=== PATIENT | male | born 1950 | race Hispanic/Latino ===

== ENCOUNTER 2017-09-01 08:42 | Emergency (ER) | payer MEDICARE ==
[2017-09-01 08:43] VITALS: BMI 31.9
[2017-09-01 09:05] VITALS: TEMP 98.7; O2SAT 98
[2017-09-01] MEDS ORDERED: Morphine 4 mg/ml ISec IVP STA (09:22)
[2017-09-01] MEDS ORDERED: Morphine 2 mg/ml ISec IVP STA (09:23)
[2017-09-01] MEDS ORDERED: Morphine 2 mg/ml ISec ONE (09:25)
--- NOTE | 2017-09-01 09:56 | ED PDOC ---
Arrival/HPI - General Chief Complaint: Trauma Time Seen by Provider: 09/01/17 09:18 Historian: Patient - History of Present Illness Narrative History of Present Illness (Text): 09/01/17 09:53 67yr old male presents today with left wrist pain s/p fall last night. pt states he missed the last step and fell landing on outstretched arm. pt c/o pain to the left wrist. denies hitting his head. denies neck or back pain. no fever/chills. denies numbness or tingling in the extremity. pt c/o severe aching pain and deformity to the wrist. no abdominal pain. no dizziness or weakness. no other complaints. Past Medical History - Provider Review Nursing Documentation Reviewed: Yes - Travel History Have you recently traveled outside [place] w/in the past 3 mons?: No - Past History Past History: Non-Contributing - Infectious Disease Hx of Infectious Diseases: None - Tetanus Immunization Tetanus Immunization: Unknown - Past Medical History Past Medical History: Non-Contributing - Cardiac Hx Congestive Heart Failure: Yes Hx Hypertension: Yes - Pulmonary Hx Respiratory Disorders: No - Neurological Hx Neurological Disorder: No - HEENT Hx HEENT Disorder: No - Renal Hx Renal Disorder: No - Endocrine/Metabolic Hx Endocrine Disorders: No - Hematological/Oncological Hx Blood Disorders: No Hx AIDS: No - Integumentary Hx Dermatological Disorder: No - Musculoskeletal/Rheumatological Hx Musculoskeletal Disorders: No - Gastrointestinal Hx Gastrointestinal Disorders: No - Genitourinary/Gynecological Hx Genitourinary Disorders: No - Psychiatric Hx Depression: No Hx Emotional Abuse: No Hx Physical Abuse: No Hx Substance Use: No - Surgical History Hx Orthopedic Surgery: Yes (BACK, C SPINE, L KNEE) - Suicidal Assessment Feels Threatened In Home Enviroment: No Family/Social History - Physician Review Nursing Documentation Reviewed: Yes Family/Social History: Unknown Family HX Smoking Status: Never Smoked Hx Alcohol Use: Yes (beer and whiskey) Hx Substance Use: No Hx Substance Use Treatment: No Allergies/Home Meds Allergies/Adverse Reactions: Allergies No Known Allergies Allergy (Verified 09/01/17 09:00) Home Medications: Home Meds Medication Instructions Recorded Confirmed Unobtainable 04/30/16 09/01/17 Review of Systems - Review of Systems Constitutional: absent: Fatigue, Fevers Respiratory: absent: SOB, Cough Cardiovascular: absent: Chest Pain, Palpitations Gastrointestinal: absent: Abdominal Pain, Nausea, Vomiting Genitourinary Male: absent: Dysuria Musculoskeletal: Arthralgias. absent: Back Pain, Neck Pain Skin: absent: Rash, Pruritis Neurological: absent: Headache, Dizziness Psychiatric: absent: Anxiety, Depression, Suicidal Ideation Physical Exam Vital Signs Reviewed: Yes Vital Signs Temp Pulse Resp BP Pulse Ox 09/01/17 09:03 98.7 F 89 17 169/99 H 98 Temperature: Afebrile Blood Pressure: Hypertensive Pulse: Regular Respiratory Rate: Normal Appearance: Positive for: Well-Appearing, Non-Toxic, Comfortable Pain Distress: None Mental Status: Positive for: Alert and Oriented X 3 - Systems Exam Head: Present: Atraumatic Mouth: Present: Moist Mucous Membranes Neck: Present: Normal Range of Motion Respiratory/Chest: Present: Clear to Auscultation, Good Air Exchange. No: Respiratory Distress, Accessory Muscle Use Cardiovascular: Present: Regular Rate and Rhythm, Normal S1, S2. No: Murmurs Abdomen: Present: Normal Bowel Sounds. No: Tenderness, Distention, Peritoneal Signs Upper Extremity: Present: NORMAL PULSES, Tenderness (left wrist; + deformity; + tenderness noted over dorsal wrist, sensation and distal pulses intact. cap refill <2. ), Swelling, Neurovascularly Intact, Capillary Refill < 2s, Deformity. No: Normal ROM Neurological: Present: GCS=15 Skin: Present: Warm, Dry, Normal Color. No: Rashes Psychiatric: Present: Alert, Oriented x 3 Medical Decision Making ED Course and Treatment: 09/01/17 09:57 Patient nontoxic well-appearing in no distress with stable vital signs with 10/ 10 left wrist pain s/p mechanical fall last night. morphine given IV. X-rays of the left wrist; + fracture, bony lesion. pt requesting dr. anna; i spoke with dr. anna discussed case in depth; requesting ct of wrist; he saw patient at bedside and splinted patient. He would like patient to be discharged on percocet; pt is to f/u with dr. anna in the office. I discussed all results with patient advised to followup with the orthopedist for the next 2 days. Return if symptoms worsen persist or new symptoms develop Stressed importance of immediate follow-up regarding bony lesion. Advised patient of concern for cyst versus cancerous lesion. I advised immediate follow- up for further diagnosis. Patient verbalizes understanding of discharge instructions and need for immediate followup. all aspects of this case were discussed the attending of record. Impression: wrist fracture, bony lesion take percocet every 6 hours as needed for pain. Rest, ice, compression, elevation Followup with the orthopedist within the next 2 days Followup with primary care physician within the next 2 days Return if any other concerning symptoms develop - RAD Interpretation Radiology Orders: 09/01/17 09:07 CHEST ONE VIEW [RAD] Stat WRIST, LEFT 3 VIEWS [RAD] Stat 09/01/17 10:09 EXT UPPER W/O CONTRAST LEFT [CT] Stat - Medication Orders Current Medication Orders: Discontinued Medications Morphine Sulfate (Morphine) 2 mg IVP STAT STA Stop: 09/01/17 09:24 Last Admin: 09/01/17 09:26 Dose: 2 mg Comments: med not scanning MAR Pain Assessment Document 09/01/17 09:26 (Rec: 09/01/17 09:26 [id number]) Pain Reassessment Is this a pain reassessment? No Sleep Is patient sleeping during reassessment? No Presence of Pain Presence of Pain Yes Pain Scale Used Pain Scale Used Numeric Location Left, Right or Bilateral Left Pain Location Body Site Wrist IVP Administration Document 09/01/17 09:26 SE (Rec: 09/01/17 09:26 [id number] Charges for Administration # of IVP Administrations 1 Disposition/Present on Arrival - Present on Arrival Any Indicators Present on Arrival: No History of DVT/PE: No History of Uncontrolled Diabetes: No Urinary Catheter: No History of Decub. Ulcer: No History Surgical Site Infection Following: None - Disposition Have Diagnosis and Disposition been Completed?: Yes Diagnosis: Wrist fracture, Bony abnormality Disposition: HOME/ ROUTINE Disposition Time: 11:38 Patient Plan: Discharge Condition: GOOD Discharge Instructions (ExitCare): Wrist Fracture in Adults (ED) Additional Instructions: take percocet every 6 hours as needed for pain. Rest, ice, compression, elevation Followup with the orthopedist within the next 2 days regarding abnormal bony lesion. Followup with primary care physician within the next 2 days Return if any other concerning symptoms develop Referrals: Shyam Sheridan MD [Primary Care Provider] - Follow up with primary Lloyd Anna DO [Staff Provider] - Follow up with primary Forms: Ubimo (Maltese)
--- NOTE | 2017-09-01 11:50 | CT ---
PROCEDURE: CT of the left wrist without contrast HISTORY: left wrist fx with bony lesion COMPARISON: X-ray same day TECHNIQUE: Radiation dose: Total exam DLP = 136 mGy-cm. This CT exam was performed using one or more of the following dose reduction techniques: Automated exposure control, adjustment of the mA and/or kV according to patient size, and/or use of iterative reconstruction technique. 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 Fractures are seen through the wall of the cyst and through the articular surface of the distal radius. There is also bone cyst in the scaphoid without associated fracture. That cyst measures 6 x 12 mm as seen on axial image 73 series 2. Chronic degenerative changes are seen in the carpal bones. 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
[2017-09-01 11:52] VITALS: BP 150/79; PULSE 82; RESP 16
--- NOTE | 2017-09-01 11:52 | RAD ---
PROCEDURE: CHEST RADIOGRAPH, 1 VIEW HISTORY: fall last night COMPARISON: 12/28/2013 FINDINGS: LUNGS: Clear. PLEURA: No pneumothorax or pleural fluid seen. CARDIOVASCULAR: Mild cardiomegaly OSSEOUS STRUCTURES: No significant abnormalities. VISUALIZED UPPER ABDOMEN: Normal. OTHER FINDINGS: None. IMPRESSION: No active disease.
--- NOTE | 2017-09-01 11:53 | RAD ---
PROCEDURE: Left Wrist Radiographs. HISTORY: s/p fall last night COMPARISON: None. 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 A smaller cyst is seen in the scaphoid with no associated fractures JOINTS: Normal. No dislocation. SOFT TISSUES: Normal. OTHER FINDINGS: None. 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 A smaller cyst is seen in the scaphoid with no associated fractures
--- NOTE | 2017-09-02 08:55 | CON ---
DATE: 09/01/2017 ORTHOPEDIC CONSULTATION HISTORY OF PRESENT ILLNESS: The patient is a 67-year-old male. No previous history of injuries or trauma, sustained a fracture to his left wrist yesterday on 08/31/2017, had no previous pain prior to the fall on the steps. An x-ray shows a large bone cyst at the distal radius with fracture to the lateral radial part of the metaphysis. It was approximately about 3 cm x 3.5 cm wide, not encompassing much of the radial articular surface just at the radial metaphyseal surface, minimally displaced with tremendous pain. So, I put him in a radial gutter splint and I am going to get copies of the plain x-rays and the CAT scan and send to a tumor specialist, Dr. Rodriguez in [place]. In the meantime, I will call him tomorrow with more information and just to elevate the arm and if it gets worse pain or numbness, I could see him again in the Emergency Room. Hopefully, when he elevates feel better. FINAL DIAGNOSIS: Pathologic fracture at the distal radius right-hand dominant man and to send him to a bone tumor specialist. Lloyd Frances DO
== END 2017-09-01 11:51 | disposition home or self-care (01) ==
LOC: ED 08:42
DX: S62.102A Fracture of unspecified carpal bone, left wrist, initial encounter for closed fracture (principal); W10.8XXA Fall (on) (from) other stairs and steps, initial encounter; Y92.008 Other place in unspecified non-institutional (private) residence as the place of occurrence of the external cause; M89.9 Disorder of bone, unspecified
CPT/HCPCS: 71045; 73110; 73200; 96374; 99285; J2270

== ENCOUNTER 2017-11-25 06:42 | Day surgery (SDC) | payer MEDICARE ==
[2017-11-14 12:45] VITALS: BMI 29.0
[2017-11-25] MEDS ORDERED: Lidocaine 2% Inj (20ml) ONE (07:04)
[2017-11-25] MEDS ORDERED: Iodixanol 320 MG/ML 200 ML BOTTLE IV ONE (07:05)
[2017-11-25] MEDS ORDERED: Midazolam 2 MG/2 ML VIAL ONE ×2 (07:05→08:38)
[2017-11-25 07:15] LABS: BASO # 0.02 K/mm3 (0.0-2.0); BASO % 0.3 % (0.0-3.0); EOS # 0.1 (0.0-0.7); EOS % 2.2 % (1.5-5.0); GRAN # 3.76 (1.4-6.5); GRAN % 59.4 % (50.0-68.0); HEMOGLOBIN 14.7 g/dL (14.0-18.0); LYMPH # 1.7 (1.2-3.4); LYMPH % 26.4 % (22.0-35.0); MEAN CORPUSCULAR HEMOGLOBIN 27.7 pg (25.0-35.0); MEAN CORPUSCULAR HGB CONC 33.4 g/dl (31.0-37.0); MEAN PLATELET VOLUME 12.8 fl (7.0-11.0); MONO # 0.7 (0.1-0.6); MONO % 11.7 % (1.0-6.0); RBC 5.3 10^6/uL (3.5-6.1); RED CELL DISTRIBUTION WIDTH 15.1 % (11.5-14.5); WHITE BLOOD COUNT 6.3 10^3/ul (4.5-11.0)
[2017-11-25 07:24] LABS: BLOOD UREA NITROGEN 29 mg/dL (7-21); CALCIUM 9.9 mg/dL (8.4-10.5); GFR AFRICAN-AMERICAN > 60; GFR NON-AFRICAN AMERICAN > 60; HDL CHOLESTEROL 41 mg/dL (29-60)
[2017-11-25 07:32] LABS: INR 1.19 (0.93-1.08); PROTHROMBIN TIME 13.7 SECONDS (9.4-12.5)
[2017-11-25 07:34] LABS: LDL CHOLESTEROL 90 mg/dL (0-129)
[2017-11-25] MEDS ORDERED: Sodium Chloride 0.9% 1,000 ML IV SCH (10:00)
--- NOTE | 2017-11-25 10:15 | CPOSTOP ---
DATE: 11/25/2017 CARDIOVASCULAR LAB POSTPROCEDURE NOTE (CARDIAC CATH). PHYSICIAN: Mary Blair MD HOOKER UP: KEVIN Cano, decontamination technician. TYPE OF ANESTHESIA: Moderate conscious sedation. Total dose given 2 mg of Versed, 100 of fentanyl periodically, it started at 1 mg of Versed and 50 of fentanyl. PRE-PROCEDURE DIAGNOSES: pre-op clearance and abnormal stress test and cardiomyopathy. PROCEDURE PERFORMED: Left heart catheterization from right femoral access. FINDINGS: Nonobstructive coronary artery disease, nonischemic cardiomyopathy, ejection fraction 30%. FINAL DIAGNOSIS: Nonischemic cardiomyopathy. POST PROCEDURE CONDITION: Stable. VASCULAR ACCESS SITE: Right femoral groin. CLOSING DEVICE APPLIED: Angio-Seal. RADIATION DOSE: 5685.9 milligray unit. FLUORO TIME: 2.1 minutes. Mary Blair MD MTDD
[2017-11-25 10:33] VITALS: TEMP 98.6
[2017-11-25 10:56] VITALS: RESP 18; O2SAT 98
[2017-11-25] MEDS ORDERED: Digoxin 125 mcg (0.125 mg) Tab PO SCH ×2 (14:00)
[2017-11-25 14:25] VITALS: BP 159/80; PULSE 66
--- NOTE | 2017-11-25 18:35 | CARD ---
APPROVED REPORT Procedure(s) performed: Left Heart Catheterization HISTORY The patient is a 67 year-old male with a history of : most recent EF: 30%. (EF Method: RADIONUCLIDE), diabetes mellitus with diet treatment , previous diagnostic cath, hypertension , dyslipidemia , CMP and abnormal stress test pre-op for wrist surgery.. INDICATION The indication(s) include : positive stress test, dyspnea. CASE TECHNIQUE The patient was brought electively to the Cardiac Catheterization Laboratory in a fasting state and was prepped and draped in a sterile manner. The right femoral groin was infiltrated with 2% Lidocaine subcutaneous anesthesia. A 6 Fr x 10 cm Cornish sheath was inserted into the right femoral artery without difficulty. Coronary angiography was performed using coronary diagnostic catheters. The left coronary system was accessed and visualized with a Diagnostic ,6 Fr JL 4 catheter. The right coronary system was accessed and visualized with a Diagnostic ,6 Fr JR 4 catheter. The left ventricle was accessed and visualized with a 6 Fr Pigtail catheter. Left ventricular/Aortic Valve gradient assessed on pullback. Left ventriculogram was performed in MA projection. Pre-demployment femoral angiogram was performed . Closure device was deployed with a 6 Fr Angio-Seal without any complications. The patient tolerated the procedure well and there were no complications associated with the procedure. Vessel Analysis The patient's coronary anatomy is right dominant. The left main coronary artery is a large size vessel with diffuse calcification noted throughout this vessel and without significant stenosis. The left main bifurcates to the left anterior descending and circumflex. The left anterior descending artery is a large size vessel with diffuse calcification noted throughout this vessel and without significant stenosis. The first diagonal branch is a medium size vessel with diffuse calcification noted throughout this vessel and without significant stenosis. The second diagonal branch is a medium size vessel with diffuse calcification noted throughout this vessel and without significant stenosis. The circumflex artery is a medium size vessel with diffuse calcification noted throughout this vessel and without significant stenosis. The first obtuse marginal branch is a medium size vessel with diffuse calcification noted throughout this vessel and without significant stenosis. The second obtuse marginal branch is a medium size vessel with diffuse calcification noted throughout this vessel and without significant stenosis. The third obtuse marginal branch is a medium size vessel with diffuse calcification noted throughout this vessel and without significant stenosis. The right coronary artery is a medium size vessel with diffuse calcification noted throughout this vessel and without significant stenosis. The right posterior descending artery is a medium size vessel with diffuse calcification noted throughout this vessel and with significant stenosis. There is a 55% stenosis in the mid segment. diffusely diseased Left Ventricle The left ventricle is moderately increased in size with moderately decreased contractility. Non-Ischemic cardiomyopathy. The left ventricular ejection fraction is estimated to be 30%. The left ventricular end diastolic pressure is 25 mmHg. There was no gradient across the aortic valve upon pullback. Conclusion Non obstructive CAD limited to R PDA 55% Non Ischemic CMP, EF-30%, EDP-25 mmof Hg. Recommendations Aggressive Medical TherapyCardiac Risk Reduction Program Weight Loss Reduction Program Add Low dose Dig in current regimen. PT is cleared to go for left wrist surgery with moderate risk F/u LV Fx in 3-6 months, if remains less than 35% , may comnsider AICD. CC; DRs. Sheridan/ Donta.
--- NOTE | 2017-11-26 06:42 | HP ---
DATE OF DICTATION: 11/23/2017 REASON FOR ADMISSION: Left heart cath, possible angioplasty, abnormal stress test. BRIEF CLINICAL HISTORY: This is a 67-year-old male with past medical history significant for hypertension more than 7 years, diabetes for more than 4 years, obesity, underwent a stress test for preop evaluation prior to surgery, abnormal. So, the patient was scheduled for elective cardiac cath, possible angioplasty. PAST MEDICAL HISTORY: Significant for hypertension, hyperlipidemia,and diabetes. SOCIAL HISTORY: Denies smoking. Denies any history of alcohol abuse. CURRENT MEDICATIONS: The patient is taking losartan 100 mg daily, Coreg 12.5 mg daily, Xanax 0.5 mg daily, oxycodone 10 mg daily, hydrochlorothiazide 25 mg daily, amlodipine 10 mg daily, cyanocobalamin 1000 mcg daily, vitamin D3 50,000 units , and aspirin 81 mg daily. ALLERGIES: NO KNOWN DRUG ALLERGIES. RECENT CARDIAC WORKUP: The patient had a stress test, Lexiscan, dated 10/23/2017 that showed abnormal myocardial perfusion study, ejection fraction 30%, fixed apical inferior defect due to diaphragmatic attenuation, severe LV dysfunction, paradoxical septum. REVIEW OF SYSTEMS: As per HPI. PHYSICAL EXAMINATION: VITAL SIGNS: Height of the patient 5 feet 6 inches, weight of the patient 180 pounds, body mass index 32 kg per m2. Temperature afebrile, heart rate 68, blood pressure 115/70. HEENT: PERRLA. Extraocular muscles intact. NECK: Supple. No carotid bruit or thyromegaly. CHEST: Clear to auscultation. HEART: S1 and S2 regular. ABDOMEN: Soft. EXTREMITIES: Clubbing and cyanosis negative. IMPRESSION: Chest pain, needs clearance for surgery, abnormal stress test, dyspnea on exertion, shortness of breath, hypertension, hyperlipidemia, diabetes, multiple risk factors for coronary artery disease, preoperative clearance. The patient needs surgery. Suggested catheterization. The patient is scheduled for cardiac catheterization. Risks, benefits, and alternatives were explained to the patient. The patient agreed to proceed for cardiac catheterization. We will await for the blood workup. When the blood workup is available, found within the normal limits, we will load him with aspirin and Plavix and proceed for cardiac catheterization. Further recommendations after cardiac catheterization. Thank you Dr. Sheridan/Dr. Longo for providing us the opportunity in taking care of patient, Jeremaih Ward. Mary Blair MD
== END 2017-11-25 15:00 | disposition home or self-care (01) ==
LOC: CATH 06:42
PROVIDERS: ATTEND Internal Medicine Cardiovascular Disease
DX: I25.10 Atherosclerotic heart disease of native coronary artery without angina pectoris (principal); I25.5 Ischemic cardiomyopathy; I10 Essential (primary) hypertension; E11.9 Type 2 diabetes mellitus without complications; E78.5 Hyperlipidemia, unspecified; Z79.82 Long term (current) use of aspirin; R94.39 Abnormal result of other cardiovascular function study
CPT/HCPCS: 36415; 80048; 80061; 85025; 85610; 85730; 86850; 86860; 86870; 86900; 93458; 99152; 99153; C1760; C1769; C1894; J1644; J1940; J2250; J3010; J7030; J7040; Q9966

== ENCOUNTER 2018-09-12 07:15 | Outpatient (CLI) | payer MEDICARE | END 2018-09-12 07:16 | disposition home or self-care (01) | LOC: LAB 07:15 ==

== ENCOUNTER 2018-10-21 08:31 | Outpatient (CLI) | payer MEDICARE | END 2018-10-21 08:32 | disposition home or self-care (01) | LOC: LAB 08:31 ==